=== PATIENT | male | born 1995 | race Hispanic/Latino ===

== ENCOUNTER 2019-10-08 12:35 | Emergency (ER) | payer SELFPAY | END 2019-10-08 12:55 | disposition home or self-care (01) | LOC: BURERS 12:35 | DX: J11.1 Influenza due to unidentified influenza virus with other respiratory manifestations (principal); J45.909 Unspecified asthma, uncomplicated; F17.220 Nicotine dependence, chewing tobacco, uncomplicated | CPT/HCPCS: 99283 ==

== ENCOUNTER 2022-03-29 22:01 | Emergency (ER) | payer OTHER, SELFPAY ==
[2022-03-29] MEDS ORDERED: Bacitracin 1 PK ONE (22:45)
[2022-03-29] MEDS ORDERED: AMOXicillin 250 MG CAP ONE (22:51)
== END 2022-03-29 23:00 | disposition home or self-care (01) ==
LOC: BURERS 22:01
DX: S61.412A Laceration without foreign body of left hand, initial encounter (principal); S61.411A Laceration without foreign body of right hand, initial encounter; F17.220 Nicotine dependence, chewing tobacco, uncomplicated; W25.XXXA Contact with sharp glass, initial encounter
CPT/HCPCS: 12001

== ENCOUNTER 2022-05-14 16:51 | Emergency (ER) | payer OTHER | END 2022-05-14 18:05 | disposition home or self-care (01) | LOC: BURERS 16:51 | DX: S93.402A Sprain of unspecified ligament of left ankle, initial encounter (principal); J45.909 Unspecified asthma, uncomplicated; F17.220 Nicotine dependence, chewing tobacco, uncomplicated; X50.1XXA Overexertion from prolonged static or awkward postures, initial encounter; Y93.01 Activity, walking, marching and hiking ==

== ENCOUNTER 2022-10-11 01:53 | Emergency (ER) | payer OTHER | END 2022-10-11 02:39 | disposition home or self-care (01) | LOC: BURERS 01:53 | DX: S62.350A Nondisplaced fracture of shaft of second metacarpal bone, right hand, initial encounter for closed fracture (principal); F10.129 Alcohol abuse with intoxication, unspecified; F17.220 Nicotine dependence, chewing tobacco, uncomplicated; W01.198A Fall on same level from slipping, tripping and stumbling with subsequent striking against other object, initial encounter ==

== ENCOUNTER 2024-01-02 20:36 | Emergency (ER) | payer OTHER ==
[2024-01-02] MEDS ORDERED: Ketorolac Tromethamine 30 MG (1 mL) VIAL ONE (21:17)
== END 2024-01-02 21:53 | disposition home or self-care (01) ==
LOC: BURERS 20:36
DX: S90.112A Contusion of left great toe without damage to nail, initial encounter (principal); F17.220 Nicotine dependence, chewing tobacco, uncomplicated; W20.8XXA Other cause of strike by thrown, projected or falling object, initial encounter
CPT/HCPCS: J1885